=== PATIENT | male | born 1945 | race African-American/Black ===

== ENCOUNTER 2016-10-28 16:11 | Inpatient (IN) | payer OTHER ==
[2016-10-28] VITALS (12 sets, daily range): BP systolic 86–117; BP diastolic 60–71
[~2016-10-28] VITALS: Ht 167.6 cm; Wt 76.5 kg
[2016-10-28 17:12] LABS: EOSINOPHIL (%) 4.3 % (0-5); EOSINOPHIL COUNT 0.4 K/uL (0-0.3); HEMATOCRIT 36.4 % (38.0-50.0); IMMATURE GRANULOCYTE (%) 0.5 % (0.0-0.7); IMMATURE GRANULOCYTE COUNT 0.1 K/uL; INSTRUMENT ABS NEUTROPHIL CT 6.1 K/uL; LYMPHOCYTE COUNT 2.1 K/uL (1.0-2.8); MCH 29.3 PG (29.0-34.0); MCHC 33.8 G/DL (30.0-36.0); MCV 86.7 FL (86-99); MEAN PLAT.VOLUME 9.6 uM^3 (9.0-12.4); MONOCYTE (%) 6.9 % (3-12); MONOCYTE COUNT 0.6 K/uL (0-0.8); NEUTROPHIL (%) 65.6 % (45-76); NEUTROPHIL COUNT 6.1 K/uL (1.8-6.4); PLATELET COUNT 165 K/uL (156-360); RBC DIS.WIDTH-CV 14.3 % (11.8-14.6); RBC DIS.WIDTH-SD 45.5 % (39-53); WHITE BLOOD COUNT 9.3 K/uL (4.1-10.2)
[2016-10-28 17:25] LABS: CHLORIDE 110 mEq/L (99-109); POTASSIUM 3.7 mEq/L (3.7-5.4); SODIUM 140 mEq/L (136-147)
[2016-10-28 17:26] LABS: AMYLASE 114 IU/L (1-118)
[2016-10-28 17:27] LABS: GLUCOSE 118 mg/dL (70-99)
[2016-10-28 17:28] LABS: ANION GAP 12 MEQ/L (2-14)
[2016-10-28 17:29] LABS: TOTAL BILIRUBIN 0.5 mg/dL (0.0-1.0)
[2016-10-28 17:30] LABS: SERUM ETHYL ALCOHOL < 10 mg/dL
[2016-10-28 17:31] LABS: ALKALINE PHOSPHATASE 60 IU/L (3-129); GFR ESTIMATE (CALCULATED) > 59 mL/min/
[2016-10-28 17:32] LABS: UREA NITROGEN (BUN) 13 mg/dL (9-23)
[2016-10-28 17:34] LABS: LIPASE 106 U/L (1.0-51.0)
[2016-10-28 17:35] LABS: TROP-I INTERPRETATION INDETERMINATE
[2016-10-28 20:25] LABS: METH RESISTANT S AUREUS PCR ND (NEGATIVE)
[2016-10-28 21:58] LABS: METH RESISTANT S AUREUS PCR NEGATIVE (NEGATIVE)
[2016-10-28 22:00] LABS: PROBE CHECK PASS; SPECIMEN PROCESSING CONTROL PASS
[2016-10-29] VITALS (22 sets, daily range): BP systolic 93–137; BP diastolic 61–92
[2016-10-29 06:47] LABS: EOSINOPHIL (%) 2.7 % (0-5); EOSINOPHIL COUNT 0.2 K/uL (0-0.3); HEMATOCRIT 35.1 % (38.0-50.0); IMMATURE GRANULOCYTE (%) 0.2 % (0.0-0.7); INSTRUMENT ABS NEUTROPHIL CT 2.5 K/uL; LYMPHOCYTE COUNT 2.3 K/uL (1.0-2.8); MCH 28.8 PG (29.0-34.0); MCHC 32.5 G/DL (30.0-36.0); MCV 88.6 FL (86-99); MEAN PLAT.VOLUME 9.6 uM^3 (9.0-12.4); MONOCYTE (%) 11.5 % (3-12); MONOCYTE COUNT 0.7 K/uL (0-0.8); NEUTROPHIL (%) 43.8 % (45-76); NEUTROPHIL COUNT 2.5 K/uL (1.8-6.4); PLATELET COUNT 164 K/uL (156-360); RBC DIS.WIDTH-CV 14.9 % (11.8-14.6); RBC DIS.WIDTH-SD 48.8 % (39-53); RED BLOOD COUNT 3.96 M/uL (4.00-5.50); WHITE BLOOD COUNT 5.6 K/uL (4.1-10.2)
[2016-10-29 07:23] LABS: ANION GAP 6 MEQ/L (2-14); CHLORIDE 111 MEQ/L (99-109); GFR ESTIMATE (CALCULATED) > 59 mL/min/; HDL CHOLESTEROL 30 MG/DL (Desirable>=40); LDL CHOLESTEROL 113 mg/dL (Desirable<100); NON-HDL CHOLESTEROL 127 mg/dL (Desirable<160); POTASSIUM 3.5 MEQ/L (3.7-5.4); SAMPLE HEMOLYSIS CHECK 0; SAMPLE ICTERIC CHECK 0; SAMPLE LIPEMIA CHECK 0; SODIUM 141 MEQ/L (136-147); TOTAL CHOLESTEROL 157 mg/dL (Desirable<200); TRIGLYCERIDES 68 MG/DL (Normal: <150); UREA NITROGEN (BUN) 9 mg/dL (9-23)
[2016-10-29 07:26] LABS: GLUCOSE 82 mg/dL (70-99)
[2016-10-29 07:43] LABS: Estimated Average Glucose 120 mg/dL (70-123); HEMOGLOBIN A1c (GLYCOHEMOGLOB) 5.8 % HGB (Below 5.7)
[2016-10-29 07:50] LABS: TROP-I INTERPRETATION POSITIVE
[2016-10-29 19:10] LABS: CREATINE KINASE 840 IU/L (1-294); TOTAL CK 840 IU/L (1-294)
[2016-10-29 19:11] LABS: TROP-I INTERPRETATION POSITIVE; TROPONIN-I 19.45 ng/mL (0.0-0.30)
[2016-10-29 19:51] LABS: CK-MB 96.4 ng/mL (0.0-4.9)
[2016-10-30] VITALS: BP 126/78
[2016-10-30 02:00] VITALS: BP 143/83
[2016-10-30 04:00] VITALS: BP 128/78
[2016-10-30 07:57] LABS: TROP-I INTERPRETATION POSITIVE; TROPONIN-I 14.31 ng/mL (0.0-0.30)
[2016-10-30 07:58] LABS: CK-MB 29.2 ng/mL (0.0-4.9)
[2016-10-30 08:00] VITALS: BP 130/80
[2016-10-30 08:09] LABS: CREATINE KINASE 498 IU/L (1-294); TOTAL CK 498 IU/L (1-294)
[2016-10-30 12:00] VITALS: BP 125/84
[2016-10-30] MEDS ORDERED: ATORVASTATIN CA80 MG PO (14:04)
[2016-10-30] MEDS ORDERED: LOPRESSOR25 MG PO (14:04)
[2016-10-30] MEDS ORDERED: CLOPIDOGREL75 MG PO (14:04)
[2016-10-30] MEDS ORDERED: LISINOPRIL2.5 MG PO (14:05)
[2016-10-30] MEDS ORDERED: ASPIR-LOW81 MG PO (14:05)
== END 2016-10-30 15:19 | disposition home or self-care (01) | DRG 246 ==
LOC: EME 16:11 → CATH 17:10 → ENRESERV 18:29 → 2SOUTH 18:33 → 4WEST 18:33 → ENPENDDIS 10-30 → 4WEST 10-30 15:19
PROVIDERS: Emergency Medicine; Internal Medicine Interventional Cardiology
DX: I21.19 ST elevation (STEMI) myocardial infarction involving other coronary artery of inferior wall (principal); I95.9 Hypotension, unspecified; I25.10 Atherosclerotic heart disease of native coronary artery without angina pectoris; I34.0 Nonrheumatic mitral (valve) insufficiency; B20 Human immunodeficiency virus [HIV] disease; R73.9 Hyperglycemia, unspecified
CPT/HCPCS: 80048; 80053; 80061; 81003; 82150; 82550; 82550 91; 82553; 83036; 83690; 84484; 85025; 85347; 85610; 85730; 86850; 86900; 86901; 87641; 93005; 94799; 99281; 99285; C1725; C1769; C1874; C1887; G0480; J0461; J1644; J2250; J2405; J3010; J3246; J7030